=== PATIENT | female | born 1955 | race Two or more races ===

== ENCOUNTER → 2023-03-19 | Outpatient (CLI) | payer OTHER ==
[2023-03-19 11:02] LABS: Basophils # (auto) 0 10 ^3/uL (0-0.2); Eosinophils # (auto) 0.1 10 ^3/uL (0-0.8); Monocytes # (auto) 0.4 10 ^3/uL (0-1.3); Neutrophils # (auto) 3.6 10 ^3/uL (1.6-8.6); Nucleated Red Blood Cells % 0.1 %
[2023-03-19 11:04] LABS: Basophils % (auto) 0.3 % (0.0-2.0); Eosinophils % (auto) 1.8 % (0.0-7.0); Hematocrit 38.8 % (36.0-46.0); Hemoglobin 12.7 g/dL (12.2-16.2); Lymphocytes % (auto) 33.1 % (10.0-50.0); Mean Corpuscular Hemoglobin 27.1 pg (28.0-32.0); Mean Corpuscular Hgb Conc. 32.6 g/dL (32.0-36.0); Mean Corpuscular Volume 83.1 fL (80.0-100.0); Neutrophils % (auto) 57.8 % (37.0-80.0); Red Blood Cells 4.67 10^6/uL (4.0-5.20); Red Cell Distribution Width 15.1 % (11.8-14.3); White Blood Cell 6.2 10^3/uL (4.4-10.8)
[2023-03-19 11:25] LABS: Alanine Aminotransferase 19 U/L (7-40); Albumin 4.6 g/dL (3.2-4.8); Alkaline Phosphatase 88 U/L (46-116); Anion Gap 8 (5-15); Aspartate Aminotransferase 19 U/L (13-40); BUN/Creatinine Ratio 27.9 (10.0-20.0); Blood Urea Nitrogen 19 mg/dL (9-23); Carbon Dioxide 30 mmol/L (20-30); Chloride 103 mmol/L (98-107); Cholesterol 133 mg/dL (< 200); Glucose 103 mg/dL (74-106); HDL Cholesterol 41 mg/dL (40-59); LDL Cholesterol 69 mg/dL (< 100); Sodium 141 mmol/L (136-145); Triglycerides 140 mg/dL (< 150)
[2023-03-19 11:26] LABS: Bilirubin, Total 0.7 mg/dL (0.2-1.0); Total Protein 7.4 g/dL (5.7-8.2)
== END | disposition home or self-care (01) ==
LOC: LAB 10:17
PROVIDERS: ATTEND Student in an Organized Health Care Education/Training Program
DX: Z00.00 Encounter for general adult medical examination without abnormal findings (principal); N17.0 Acute kidney failure with tubular necrosis; I10 Essential (primary) hypertension; E78.5 Hyperlipidemia, unspecified
CPT/HCPCS: 36415; 80053; 80061; 82274; 85025

== ENCOUNTER → 2023-05-22 | Outpatient (CLI) | payer OTHER | END | disposition home or self-care (01) | LOC: LAB 13:22 | PROVIDERS: ATTEND Family Medicine | DX: B07.9 Viral wart, unspecified (principal) ==

== ENCOUNTER → 2024-01-05 | Outpatient (CLI) | payer OTHER ==
[2024-01-05 11:23] LABS: Basophils # (auto) 0 10 ^3/uL (0-0.2); Basophils % (auto) 0.3 % (0.0-2.0); Eosinophils # (auto) 0.1 10 ^3/uL (0-0.8); Eosinophils % (auto) 1.3 % (0.0-7.0); Hematocrit 40.2 % (36.0-46.0); Hemoglobin 13.4 g/dL (12.2-16.2); Lymphocytes % (auto) 35.4 % (10.0-50.0); Mean Corpuscular Hemoglobin 27.6 pg (28.0-32.0); Mean Corpuscular Hgb Conc. 33.3 g/dL (32.0-36.0); Mean Corpuscular Volume 82.9 fL (80.0-100.0); Monocytes # (auto) 0.4 10 ^3/uL (0-1.3); Monocytes % (auto) 7.8 % (0.0-12.0); Neutrophils # (auto) 3.1 10 ^3/uL (1.6-8.6); Neutrophils % (auto) 55.2 % (37.0-80.0); Nucleated Red Blood Cells % 0.1 %; Platelet Count (auto) 185 10^3/uL (140-450); Red Blood Cells 4.84 10^6/uL (4.0-5.20); Red Cell Distribution Width 14.2 % (11.8-14.3); White Blood Cell 5.5 10^3/uL (4.4-10.8)
[2024-01-05 11:31] LABS: Urine Bacteria FEW /hpf (None Seen); Urine Blood Negative /uL (Negative); Urine Clarity Turbid (Clear); Urine Color Yellow (Yellow); Urine Hyaline Cast FEW /lpf (0 - 2); Urine Mucus FEW (None Seen); Urine Protein, UAD TRACE (Negative); Urine Specific Gravity 1.023 (1.001-1.035); Urine Urobilinogen Normal (Negative); Urine WBC 3 /hpf (0 - 5)
[2024-01-05 11:36] LABS: INR 1.04 (0.9-1.15); Partial Thromboplastin Time 26.7 SEC (24.5-34.5)
[2024-01-05 11:48] LABS: Amphetamine Screen, Urine Neg (NEGATIVE); Benzodiazephine Screen, Urine Neg (NEGATIVE)
[2024-01-05 11:49] LABS: Alanine Aminotransferase 19 U/L (7-40); Alkaline Phosphatase 89 U/L (46-116); Barbiturate Scree,Urine Neg (NEGATIVE); Calcium 10.1 mg/dL (8.7-10.4); Carbon Dioxide 30 mmol/L (20-31); Chloride 104 mmol/L (98-107); Cocaine Screen, Urine Neg (NEGATIVE); Glucose 95 mg/dL (74-106); Opiate Scree,Urine Neg (NEGATIVE); Phencyclidine Screen, Urine Neg (NEGATIVE)
[2024-01-05 11:50] LABS: Albumin 4.4 g/dL (3.2-4.8); Anion Gap 6 (5-15); Aspartate Aminotransferase 15 U/L (13-40); BUN/Creatinine Ratio 21.5 (10.0-20.0); Blood Urea Nitrogen 14 mg/dL (9-23); Cannabinoid Screen, Urine Pos (NEGATIVE); Sodium 140 mmol/L (136-145); Total Protein 7.2 g/dL (5.7-8.2)
== END | disposition home or self-care (01) ==
LOC: LAB 10:57
PROVIDERS: ATTEND Nurse Practitioner
DX: Z01.812 Encounter for preprocedural laboratory examination (principal)
CPT/HCPCS: 36415; 80053; 80307; 81001; 83036; 85025; 85610; 85730

== ENCOUNTER 2024-08-22 09:10 | Outpatient (CLI) | payer OTHER ==
[2024-08-22 10:07] LABS: Basophils # (auto) 0 10 ^3/uL (0-0.2); Basophils % (auto) 0.4 % (0.0-2.0); Eosinophils # (auto) 0.1 10 ^3/uL (0-0.8); Hematocrit 39.2 % (36.0-46.0); Hemoglobin 12.9 g/dL (12.2-16.2); Lymphocytes # (auto) 2.2 10 ^3/uL (0.4-5.4); Lymphocytes % (auto) 42.5 % (10.0-50.0); Mean Corpuscular Hemoglobin 26.7 pg (28.0-32.0); Mean Corpuscular Hgb Conc. 32.9 g/dL (32.0-36.0); Monocytes # (auto) 0.4 10 ^3/uL (0-1.3); Neutrophils # (auto) 2.5 10 ^3/uL (1.6-8.6); Neutrophils % (auto) 48.1 % (37.0-80.0); Nucleated Red Blood Cells % 0.1 %; Platelet Count (auto) 223 10^3/uL (140-450); Red Blood Cells 4.84 10^6/uL (4.0-5.20); Red Cell Distribution Width 15.5 % (11.8-14.3); White Blood Cell 5.3 10^3/uL (4.4-10.8)
[2024-08-22 10:09] LABS: Basophils # (auto) 0 10 ^3/uL (0-0.2); Basophils % (auto) 0.4 % (0.0-2.0); Eosinophils # (auto) 0.1 10 ^3/uL (0-0.8); Hemoglobin 12.9 g/dL (12.2-16.2); Lymphocytes # (auto) 2.1 10 ^3/uL (0.4-5.4); Red Cell Distribution Width 15.3 % (11.8-14.3)
[2024-08-22 10:12] LABS: Hematocrit 38.8 % (36.0-46.0); Lymphocytes % (auto) 42.2 % (10.0-50.0); Mean Corpuscular Hemoglobin 26.8 pg (28.0-32.0); Mean Corpuscular Hgb Conc. 33.3 g/dL (32.0-36.0); Mean Corpuscular Volume 80.6 fL (80.0-100.0); Monocytes # (auto) 0.3 10 ^3/uL (0-1.3); Monocytes % (auto) 6.9 % (0.0-12.0); Neutrophils # (auto) 2.4 10 ^3/uL (1.6-8.6); Neutrophils % (auto) 48.5 % (37.0-80.0); Nucleated Red Blood Cells % 0.1 %; Platelet Count (auto) 216 10^3/uL (140-450); Red Blood Cells 4.82 10^6/uL (4.0-5.20)
[2024-08-22 10:17] LABS: Urine Bacteria FEW /hpf (None Seen); Urine Blood Negative /uL (Negative); Urine Budding Yeast OCCASIONAL /hpf (None Seen); Urine Clarity Turbid (Clear); Urine Color Light-Yellow (Yellow); Urine Mucus FEW (None Seen); Urine Protein, UAD Negative (Negative); Urine Specific Gravity 1.023 (1.001-1.035); Urine Squamous Epithelial Cell MOD /hpf (<5); Urine Urobilinogen Normal (Negative); Urine WBC 3 /HPF (0-5); Urine pH 5.5 (5.0-9.0)
[2024-08-22 10:19] LABS: Urine Bacteria FEW /hpf (None Seen); Urine Blood Negative /uL (Negative); Urine Clarity Turbid (Clear); Urine Color Light-Yellow (Yellow); Urine Mucus FEW (None Seen); Urine Protein, UAD Negative (Negative); Urine Specific Gravity 1.023 (1.001-1.035); Urine Squamous Epithelial Cell MOD /hpf (<5); Urine Urobilinogen Normal (Negative); Urine WBC 1 /HPF (0-5); Urine pH 5.5 (5.0-9.0)
[2024-08-22 10:21] LABS: INR 0.98 (0.9-1.15); Partial Thromboplastin Time 26.3 SEC (24.5-34.5); Prothrombin Time 10.4 sec (9.3-11.8)
[2024-08-22 10:35] LABS: Amphetamine Screen, Urine Neg (NEGATIVE)
[2024-08-22 10:38] LABS: Barbiturate Scree,Urine Neg (NEGATIVE); Benzodiazephine Screen, Urine Neg (NEGATIVE); Cannabinoid Screen, Urine Neg (NEGATIVE); Cocaine Screen, Urine Neg (NEGATIVE); Opiate Scree,Urine Neg (NEGATIVE); Phencyclidine Screen, Urine Neg (NEGATIVE)
[2024-08-22 10:39] LABS: Alanine Aminotransferase 13 U/L (7-40); Albumin 4.4 g/dL (3.2-4.8); Alkaline Phosphatase 86 U/L (46-116); Anion Gap 10 (5-15); Aspartate Aminotransferase 17 U/L (<34); BUN/Creatinine Ratio 27.8 (10.0-20.0); Bilirubin, Total 0.4 mg/dL (0.2-1.0); Blood Urea Nitrogen 20 mg/dL (9-23); Calcium 9.8 mg/dL (8.7-10.4); Carbon Dioxide 28 mmol/L (20-31); Chloride 105 mmol/L (98-107); Glucose 92 mg/dL (74-106); Potassium 3.7 mmol/L (3.5-5.1); Sodium 143 mmol/L (136-145); Total Protein 7.1 g/dL (5.7-8.2)
[2024-08-22 10:41] LABS: Alanine Aminotransferase 13 U/L (7-40); Albumin 4.4 g/dL (3.2-4.8); Alkaline Phosphatase 86 U/L (46-116); Anion Gap 11 (5-15); BUN/Creatinine Ratio 28.2 (10.0-20.0); Blood Urea Nitrogen 20 mg/dL (9-23); Carbon Dioxide 28 mmol/L (20-31); Chloride 105 mmol/L (98-107); Glucose 92 mg/dL (74-106); LDL Cholesterol 76 mg/dL (< 100); Potassium 3.7 mmol/L (3.5-5.1); Sodium 144 mmol/L (136-145); Total Protein 7.1 g/dL (5.7-8.2); Triglycerides 124 mg/dL (< 150)
[2024-08-22 10:42] LABS: Aspartate Aminotransferase 17 U/L (<34); Bilirubin, Total 0.4 mg/dL (0.2-1.0); Cholesterol 144 mg/dL (< 200); HDL Cholesterol 53 mg/dL (40-59)
== END 2024-08-22 17:00 | disposition home or self-care (01) ==
LOC: LAB 09:10
PROVIDERS: ATTEND Nurse Practitioner
DX: Z01.812 Encounter for preprocedural laboratory examination (principal); I10 Essential (primary) hypertension; E78.5 Hyperlipidemia, unspecified; E66.01 Morbid (severe) obesity due to excess calories; M17.0 Bilateral primary osteoarthritis of knee; R79.1 Abnormal coagulation profile
CPT/HCPCS: 36415; 80053; 80061; 80307; 81001; 83036; 84443; 85025; 85610; 85730

== ENCOUNTER 2024-10-17 07:16 | Inpatient (IN) | payer OTHER ==
[2024-10-14 12:19] LABS: Hemoglobin 14.0 g/dL (12.2-16.2); Mean Corpuscular Volume 80.1 fL (80.0-100.0); Nucleated Red Blood Cells % 0.0 %
[2024-10-14 12:21] LABS: Urine Protein, UAD Negative (Negative)
[2024-10-14 12:23] LABS: Hematocrit 41.4 % (36.0-46.0); Mean Corpuscular Hemoglobin 27.2 pg (28.0-32.0)
[2024-10-14 12:32] LABS: Alanine Aminotransferase 21 U/L (7-40); Albumin 4.8 g/dL (3.2-4.8); Alkaline Phosphatase 92 U/L (46-116); Anion Gap 8 (5-15); BUN/Creatinine Ratio 16.0 (10.0-20.0); Bilirubin, Total 0.9 mg/dL (0.2-1.0); Blood Urea Nitrogen 12 mg/dL (9-23); Calcium 10.1 mg/dL (8.7-10.4); Carbon Dioxide 30 mmol/L (20-31); Chloride 104 mmol/L (98-107); Glucose 98 mg/dL (74-106); Sodium 142 mmol/L (136-145); Total Protein 7.4 g/dL (5.7-8.2)
[2024-10-14 12:33] LABS: Potassium 3.5 mmol/L (3.5-5.1)
[2024-10-14 12:34] LABS: INR 1.06 (0.9-1.15); Partial Thromboplastin Time 26.8 SEC (24.5-34.5); Prothrombin Time 11.2 sec (9.3-11.8)
[~2024-10-17] VITALS: Ht 149.9 cm; Wt 98.2 kg
[2024-10-17] VITALS (9 sets, daily range): BP systolic 87–106; BP diastolic 44–64; PULSE 80–111; RESP 12–18; TEMP 97.4; O2SAT 92–99
[~2024-10-17 07:16] MED LIST: BENA20TA12 PO; ESCI10TA PO; OXYB5TAB14 PO; SIMV20TA20 PO
[2024-10-17] MEDS ORDERED: fentaNYL CITRATE 100 MCG/2 ML VL ONE (09:47)
[2024-10-17] MEDS ORDERED: BUPIVACAINE/DEXTROSE MPF 0.75% 2 ML AMP IT ONE (09:48)
[2024-10-17] MEDS ORDERED: ONDANSETRON HCL 4 MG/2 ML VIAL ONE (09:48)
[2024-10-17] MEDS ORDERED: LIDOCAINE 1% INJ PF 5ML AMP ONE (09:48)
[2024-10-17] MEDS ORDERED: SODIUM CHLORIDE LOCK 10 ML ONE (09:48)
[2024-10-17] MEDS ORDERED: MIDAZOLAM HCL 2MG/2ML 2ml VIAL (1mg/ml) ONE ×3 (09:48→11:01)
[2024-10-17] MEDS ORDERED: PROPOFOL 10 MG/ML 20 ML IV ONE (09:48)
[2024-10-17] MEDS: ACETAMINOPHEN IV 1000 MG/100ML (10MG/ML) IV ONE (10:23)
[2024-10-17] MEDS: CELECOXIB 100 MG CAP PO ONE (10:46)
[2024-10-17] MEDS: PREGABALIN CAPSULE 75 MG CAP PO ONE (10:46)
[2024-10-17] MEDS: CEFEPIME 1GM/50ML 50 ML IV ONE (11:13)
[2024-10-17] MEDS: ceFAZolin 2 GM/D5W50ml 50 ML IV ONE (11:13)
[2024-10-17] MEDS ORDERED: HYDROmorphone HCL 2 MG/ML VL/or syr IV PRN ×3 (11:45→13:30)
[2024-10-17] MEDS ORDERED: MORPHINE SULFATE INJ 2 MG/ml SYRG IV PRN ×2 (11:45→13:30)
[2024-10-17] MEDS ORDERED: ACETAMINOPHEN 325 MG TAB PO PRN (11:45)
[2024-10-17] MEDS ORDERED: ceFAZolin 1GM/50ML 50 ML IV SCH (11:45)
[2024-10-17] MEDS ORDERED: OXYCODONE W/ ACETAMINOPHEN 5/325MG TABLET PO PRN (11:45)
[2024-10-17] MEDS ORDERED: NITROGLYCERIN 0.4 MG SL TAB SL PRN (11:45)
[2024-10-17] MEDS: TRANEXAMIC ACID 20 ML ONE (11:57)
[2024-10-17] MEDS: KETOROLAC TROMETH 30 MG/ML 1ML VIAL ONE (11:57)
[2024-10-17] MEDS: MORPHINE SULF PF 5 MG/10 ML VIAL ONE (11:57)
[2024-10-17] MEDS: BUPIVACAINE 0.25% INJ 50ML VIAL ONE (11:57)
[2024-10-17] MEDS: VANCOMYCIN HCL 1000 MG VL ONE (11:57)
[2024-10-17] MEDS: TRANEXAMIC ACID 10 ML ONE (12:45)
[2024-10-17] MEDS: KETOROLAC TROMETH 30 MG/ML 1ML VIAL IV ONE (13:30)
[2024-10-17] MEDS ORDERED: diphenhdrAMINE HCL 50 MG/1 ML VL IV PRN (13:30)
[2024-10-17] MEDS ORDERED: NALOXONE HCL 0.4 MG/ML VIAL IV PRN (13:30)
[2024-10-17] MEDS ORDERED: MORPHINE SULFATE 4 MG/ML SYR/VIAL IV PRN (13:30)
--- NOTE | 2024-10-17 13:34 | DVHOP2 ---
Operative Report - 2 Report Details Date: 10/17/24 Preop Diagnosis: Left Hip Osteoarthritis Postop Diagnosis: Same Surgeon: Ariel Burgos MD Car Pre Cooler: Geovanna Anesthesiologist: Prosper Anesthesia: General Consent: The patient was informed of the risks and benefits of the procedure. These include but are not limited to complications of anesthesia, postoperative infection, incomplete relief of symptoms, recurrence of symptoms, damage to blood vessels, nerves and tendons, deep venous thrombosis, pulmonary embolism and possible need for repeat surgery in the future. Estimated Blood Loss: 250 Name of Procedure Performed Left Total Hip Arthroplasty Procedure Details Procedure Details: Preoperative medical and anesthesia clearance was obtained. The patient was seen in the preoperative area, and the operative site was marked and verified by myself, the orthopedic team, and the patient. All questions were addressed, documentation was reviewed, and the patient was transported to the operating room in stable condition. Upon arrival in the operating room, anesthesia was administered. The patient received prophylactic antibiotics and tranexamic acid. A surgical time-out was performed, confirming the correct operative site. The patient was positioned in the lateral decubitus position with appropriate padding to the axilla, lower extremities, and pelvis. The nonoperative leg was fitted with a compression stocking and sequential compression device. The operative site was prepped and draped in the standard sterile fashion. The surgical team utilized body exhaust suits. A posterior incision was made just posterior to the greater trochanter. Dissection was carried through the subcutaneous tissue using electrocautery. The fascia of the gluteus perfecto was split in line with its fibers, and a portion of the distal iliotibial band was incised. A Charnley self-retaining retractor was placed, with care taken to protect the sciatic nerve. The hip was internally rotated, and the short external rotators were detached from the greater trochanter. Capsulotomy was performed, and the hip was dislocated posteriorly. Randall retractors were used to protect the soft tissues, and femoral neck osteotomy was performed according to preoperative templating. The femoral head was removed and measured. Attention was then directed to the acetabulum. Acetabular retractors were placed for exposure. The labrum and pulvinar were excised. Sequential reaming was performed to 53mm size. A trial acetabular component was inserted and found to have satisfactory fit. The definitive 54mm acetabular component was implanted at approximately 45 degrees of abduction and 20 degrees of anteversion, with fixation supplemented with 2 screws. The liner was inserted, confirmed to be fully seated, and tested for stability. Retractors were removed, and attention was turned to the femur. A femoral elevator was used for exposure. The piriformis was excised. A Charnley awl, box osteotome, and lateralizing reamer were used to access the proximal femur. Sequential reaming and broaching were performed, and the appropriate trial broach was selected, which matched the contralateral side as a size 9. The calcar was planed. Multiple trial reductions were performed to assess range of motion, stability, and leg length. The definitive femoral component was implanted, and the femoral trunnion was cleaned and dried. The femoral head was impacted, and the hip was reduced. A dilute betadine soak and pulsatile lavage were performed. Local anesthetic cocktail was injected into the soft tissues. The capsule and short external rotators were reapproximated with #5 FiberWire. Irrigation was repeated, and the fascia was closed with #1 absorbable suture. Subcutaneous tissue was closed with 2-0 absorbable suture, and the skin was closed with surgical brandi. A sterile dressing was applied, and drapes were removed. An abduction pillow was placed, and the patient was transferred to a hospital bed and taken to the recovery room in stable condition. Instrument and sponge counts were correct. I was present for the entire procedure. Condition Good Disposition 2 Home with Health Services ARIEL BURGOS DO Oct 17, 2024 13:34
[2024-10-17] MEDS: PREGABALIN CAPSULE 75 MG CAP ONE (14:06)
[2024-10-17] MEDS: CELECOXIB 100 MG CAP ONE (14:06)
[2024-10-17] MEDS: TETRACAINE 1% INJ 2 ML VIAL IJ ONE (14:07)
[2024-10-17] MEDS: ACETAMINOPHEN IV 100 ML IV ONE (14:07)
[2024-10-17] MEDS: ONDANSETRON HCL 4 MG/2 ML VIAL IV PRN (14:27)
[2024-10-17] MEDS: METOCLOPRAMIDE HCL 5MG/ml INJ 2ml VIAL IV ONE (15:19)
--- NOTE | 2024-10-17 15:22 | DVH ---
EXAM: XY PELVIS AP CLINICAL INDICATION: postop TECHNIQUE: XY PELVIS AP Comparison: None FINDINGS/IMPRESSION: There is no evidence of acute fracture or dislocation. Moderate bilateral hip osteoarthritis. The alignment is anatomical. There is no radiopaque foreign body.
[2024-10-17] MEDS: KETOROLAC TROMETH 30 MG/ML 1ML VIAL IV SCH (18:00)
[2024-10-17] MEDS: ceFAZolin 1GM/50ML 50 ML IV SCH (18:35)
[2024-10-17] MEDS: LACTATED RINGER'S 1,000 ML IV SCH (19:04)
[2024-10-17] MEDS: DOCUSATE SOD 100 MG CAP PO SCH (21:59)
[2024-10-17] MEDS: ENOXAPARIN SOD 30 MG/0.3 ML SYRINGE SC SCH (22:00)
[2024-10-18] VITALS (17 sets, daily range): BP systolic 88–111; BP diastolic 47–68; PULSE 70–96; RESP 14–18; TEMP 97.6–99.9; O2SAT 85–98
[2024-10-18 06:30] LABS: Hematocrit 27.2 % (36.0-46.0); Hemoglobin 9.4 g/dL (12.2-16.2); Mean Corpuscular Hemoglobin 27.8 pg (28.0-32.0); Mean Corpuscular Volume 80.5 fL (80.0-100.0); Nucleated Red Blood Cells % 0.0 %
[2024-10-18 06:35] LABS: Chloride 101 mmol/L (98-107); Sodium 140 mmol/L (136-145)
[2024-10-18 06:36] LABS: Anion Gap 8 (5-15); Carbon Dioxide 31 mmol/L (20-31)
[2024-10-18 06:38] LABS: Calcium 8.4 mg/dL (8.7-10.4); Potassium 3.5 mmol/L (3.5-5.1)
[2024-10-18 06:42] LABS: BUN/Creatinine Ratio 16.9 (10.0-20.0); Blood Urea Nitrogen 11 mg/dL (9-23)
[2024-10-18 06:43] LABS: Glucose 123 mg/dL (74-106)
--- NOTE | 2024-10-18 08:01 | DVHPN2 ---
Progress Note Date Seen: Oct 18, 2024 Medical Necessity Reason Pt with a Central, PICC or Fol: No Subjective Patient reports: No new complaints Objective vital signs Vital Sign Date Time Temp Pulse Resp B/P (MAP) Pulse Ox O2 Delivery O2 Flow Rate FiO2 10/18/24 07:00 73 18 97 10/18/24 05:00 98.4 95/55 (68) 98.4 10/17/24 19:00 Nasal Cannula* 2 28 Total Intake and Output 10/17/24 10/17/24 10/18/24 15:00 23:00 07:00 Intake Total 230 ml 200 ml Balance 230 ml 200 ml medications Current Medications Medications Dose Ordered Sig/Demetris Route Start Time Stop Time Status Last Admin Dose Admin Acetaminophen 650 mg Q6HP PRN PO 10/17/24 11:45 Oxycodone/ Acetaminophen 1 tab Q4HP PRN PO 10/17/24 11:45 Hydromorphone HCl 1 mg Q2HP PRN IV 10/17/24 11:45 Ondansetron HCl 4 mg Q6HP PRN IV 10/17/24 11:45 10/17/24 14:27 4 MG Docusate Sodium 100 mg Q12HR PO 10/17/24 22:00 10/17/24 21:59 100 MG Enoxaparin Sodium 30 mg Q12HR SC 10/17/24 22:00 10/17/24 22:00 30 MG Ketorolac Tromethamine 15 mg Q6HR IV 10/17/24 12:00 10/22/24 11:59 Nitroglycerin 0.4 mg Q5MINP PRN SL 10/17/24 11:45 Morphine Sulfate 2 mg Q30M PRN IV 10/17/24 11:45 Diphenhydramine HCl 25 mg Q4HP PRN IV 10/17/24 13:30 Examination: GENERAL:Normal, MSK:Abnormal laboratory and microbiology Laboratory Tests 10/18/24 05:45 Test 10/18/24 05:45 Range/Units Serum Glucose 123 H 74-106 mg/dL Problem List/Assessment/Plan Problem List/Assessment/Plan 69 year old female who is s/p Left REESE POD 1 1. Pain control 2. WBAT 3. Abduction pillow at night when sleeping 4. physical therapy with posterior hip protocol 5. follow up in 2 weeks as scheduled at [facility] ortho clinic 6. prescriptions for percocet, keflex and aspirin sent electronically by [facility] ortho clinic WILLEM Brown 7. clear for discharge from orthopedic standpoint Plan discussed with: Patient My Orders My Orders Orders - NIKKI MARCIAL NP Procedure Category Date Status Time Admit ADMIT 10/17/24 Transmitted 11:41 Patient Condition COMORDER 10/17/24 Transmitted Stable 11:41 Regular Diet DIET 10/17/24 Transmitted Lunch Vital Signs IRWIN 10/17/24 In Process 11:41 Weight-Bearing IRWIN 10/17/24 In Process Restrictions 11:41 Acetaminophen Tablet PHA 10/17/24 In Process (Tylenol Tablet) 11:45 Oxycodone W/ Acet PHA 10/17/24 In Process 5/325mg Tab (Percocet 11:45 Hydromorphone PHA 10/17/24 In Process Injection (Dilaudid 11:45 Ondansetron Hcl PHA 10/17/24 In Process (Zofran) 11:45 Docusate Sodium PHA 10/17/24 In Process Capsule (Colace 22:00 Enoxaparin Sodium PHA 10/17/24 In Process (Lovenox) 22:00 Pt Request For Service PT 10/17/24 Logged 11:41 Call/Page IRWIN 10/17/24 In Process Hospitalist/Atten Fo 11:41 Sequential IRWIN 10/17/24 In Process Compression Device 11:41 Pelvis Ap XY 10/17/24 Resulted 13:00 Incentive Spirometry ORDERS 10/17/24 Transmitted 11:41 Ketorolac Injection PHA 10/17/24 In Process (Toradol Injection) 12:00 Nitroglycerin PHA 10/17/24 In Process Sublingual (Ntrostat 11:45 Morphine Sulfate PHA 10/17/24 In Process Injection 11:45 Stat Ekg For Chest IRWIN 10/17/24 In Process Pain 11:41 Notify Of Changes IRWIN 10/17/24 In Process From Base 11:41 Daycare Teacher For IRWIN 10/17/24 In Process 24 Hours 11:41 Emergency Dysrhythmia IRWIN 10/17/24 In Process Protocol 11:41 Rhythm Strips Once IRWIN 10/17/24 In Process Every Shift 11:41 Oxygen By Nasal RT 10/17/24 Transmitted Cannula 11:41 * Hospitalist Consult CONS 10/17/24 Transmitted Date of Service: Oct 18, 2024 Billing Provider: MARGUERITE ZABALA MD Common Visit Codes: NOT BILLABLE NIKKI MARCIAL NP Oct 18, 2024 08:01
[2024-10-18] MEDS ORDERED: HYDROmorphone HCL 2 MG/ML VL/or syr IV PRN (11:45)
--- NOTE | 2024-10-18 11:49 | DVHINCON2 ---
Date Seen: Oct 18, [address] Burgos Family History: Patient reports no known family medical history. Allergies: Coded Allergies: NO KNOWN ALLERGIES (Unverified , 10/14/24) Home Meds Reported Medications Escitalopram Oxalate (Lexapro) 10 Mg Tab, 10 MG PO DAILY, TAB 10/14/24 Oxybutynin Chloride (Oxybutynin Chloride) 5 Mg Tab, 5 MG PO DAILY, TAB 10/14/24 Simvastatin (Simvastatin) 20 Mg Tab, 20 MG PO QPM, TAB 10/14/24 Benazepril & Hydrochlorothiazi (Benazepril Hcl/Hydrochlor) 1 Tab Tab, 1 TAB PO, TAB 10/14/24 Current Medications Current Medications Medications (Trade) Dose Ordered Sig/Demetris Route PRN Reason Start Time Stop Time Status Last Admin Docusate Sodium (Colace Capsule) 100 mg Q12HR PO 10/17/24 22:00 10/18/24 09:05 Enoxaparin Sodium (Lovenox) 30 mg Q12HR SC 10/17/24 22:00 10/18/24 09:05 Ketorolac Tromethamine (Toradol Injection) 15 mg Q6HR IV 10/17/24 12:00 10/22/24 11:59 Hydromorphone HCl (Dilaudid Injection) 0.5 mg Q10M PRN IV SEVERE PAIN (7-10 PAIN SCALE) 10/17/24 13:30 10/17/24 14:11 DC Morphine Sulfate 2 mg Q4H PRN IV BREAKTHRU PAIN SCALE 7-10 10/17/24 13:30 10/17/24 17:31 DC Hydromorphone HCl (Dilaudid Injection) 0.25 mg Q10M PRN IV MODERATE PAIN (4-6 PAIN SCALE) 10/17/24 13:30 10/17/24 14:01 DC Morphine Sulfate 1 mg Q30M PRN IV SEVERE PAIN (7-10 PAIN SCALE) 10/17/24 13:30 10/17/24 15:31 DC Diphenhydramine HCl (Benadryl Injection) 25 mg Q4HP PRN IV FOR ITCHING 10/17/24 13:30 Naloxone HCl (Narcan) 0.2 mg Q5M PRN IV For respirations < than 10/min 10/17/24 13:30 10/17/24 13:59 DC Cefazolin Sodium 50 ml @ 50 mls/hr Q6H IV 10/17/24 17:15 10/18/24 06:14 DC 10/18/24 04:41 Ephedrine Sulfate (ePHEDrine SULFATE) 10 mg Q10M PRN IV SBP LESS THAN 90 10/17/24 18:00 10/17/24 18:41 DC Vital Signs Vital Signs Date Time Temp Pulse Resp B/P (MAP) Pulse Ox O2 Delivery O2 Flow Rate FiO2 10/18/24 10:00 87 18 86 10/18/24 09:00 98.1 89/52 (64) 98.1 10/18/24 08:00 Room Air* 0 21 Labs/Diagnostic Data Labs Test 10/18/24 05:45 10/14/24 11:55 Range/Units White Blood Count 6.4 # 4.4-10.8 10^3/uL Red Blood Count 3.38 L 4.0-5.20 10^6/uL Hemoglobin 9.4 #L 12.2-16.2 g/dL Hematocrit 27.2 #L 36.0-46.0 % Mean Corpuscular Volume 80.5 80.0-100.0 fL Mean Corpuscular Hemoglobin 27.8 L 28.0-32.0 pg Mean Corpuscular Hemoglobin Concent 34.6 32.0-36.0 g/dL Red Cell Distribution Width 14.7 H 11.8-14.3 % Platelet Count 162 140-450 10^3/uL Mean Platelet Volume 7.5 6.9-10.8 fL Neutrophils (%) (Auto) 67.1 37.0-80.0 % Lymphocytes (%) (Auto) 22.7 10.0-50.0 % Monocytes (%) (Auto) 10.0 0.0-12.0 % Eosinophils (%) (Auto) 0.1 0.0-7.0 % Basophils (%) (Auto) 0.1 0.0-2.0 % Neutrophils # (Auto) 4.3 1.6-8.6 10 ^3/uL Lymphocytes # (Auto) 1.5 0.4-5.4 10 ^3/uL Monocytes # (Auto) 0.6 0-1.3 10 ^3/uL Eosinophils # (Auto) 0 0-0.8 10 ^3/uL Basophils # (Auto) 0 0-0.2 10 ^3/uL Nucleated Red Blood Cells 0.0 % Sodium Level 140 136-145 mmol/L Potassium Level 3.5 3.5-5.1 mmol/L Chloride Level 101 98-107 mmol/L Carbon Dioxide Level 31 20-31 mmol/L Anion Gap 8 5-15 Blood Urea Nitrogen 11 9-23 mg/dL Creatinine 0.65 0.550-1.02 mg/dL Glomerular Filtration Rate Calc 95 >90 mL/min BUN/Creatinine Ratio 16.9 10.0-20.0 Serum Glucose 123 H 74-106 mg/dL Calcium Level 8.4 L 8.7-10.4 mg/dL Prothrombin Time 11.2 9.3-11.8 sec Prothrombin Time INR 1.06 0.9-1.15 Activated Partial Thromboplast Time 26.8 24.5-34.5 SEC Urine Color Light-yellow Yellow Urine Clarity Turbid H Clear Urine pH 6.5 5.0-9.0 Urine Specific [place] 1.019 1.001-1.035 Urine Protein Negative Negative Urine Ketones Negative Negative Urine Blood Negative Negative /uL Urine Nitrite Negative Negative Urine Bilirubin Negative Negative Urine Urobilinogen Normal Negative mg/dL Urine Leukocyte Esterase Negative Negative /uL Urine RBC 1 0 - 4 /hpf Urine Microscopic WBC 1 0-5 /HPF Urine Squamous Epithelial Cells Few <5 /hpf Urine Bacteria None seen None Seen /hpf Urine Glucose Normal Normal mg/dL Total Bilirubin 0.9 0.2-1.0 mg/dL Aspartate Amino Transferase (AST) 25 13-40 U/L Alanine Aminotransferase (ALT) 21 7-40 U/L Alkaline Phosphatase 92 46-116 U/L Total Protein 7.4 5.7-8.2 g/dL Albumin 4.8 3.2-4.8 g/dL Assessment see dictated note Plan discussed with: Patient Date of Service: Oct 18, 2024 Billing Provider: PRASAD SALINAS MD Common Visit Codes: [id number] INP/OBS CARE (HIGH) Secondary Visit Codes: [id number] CARE PLAN 30 MINUTES PRASAD SALINAS MD Oct 18, 2024 11:49
--- NOTE | 2024-10-18 12:01 | DVHINCON2 ---
DATE OF CONSULTATION: 10/18/2024 INTERNAL MEDICINE CONSULT HISTORY OF PRESENT ILLNESS: The patient is a 69-year-old lady who had surgery of the left hip for DJD of the hip. The patient denies any significant pain. No chest pain, no shortness of breath. No nausea or vomiting. REVIEW OF SYSTEMS: Review of rest of the systems is otherwise currently negative. PAST MEDICAL HISTORY: Significant for hypertension, hyperlipidemia, and depression. MEDICATIONS: She takes benazepril, hydrochlorothiazide, Lexapro, simvastatin. ALLERGIES: No known drug allergies. SOCIAL HISTORY: Denies smoking or alcohol. Lives alone. FAMILY HISTORY: Negative. PHYSICAL EXAMINATION: GENERAL: The patient is awake, alert. VITAL SIGNS: Temperature of 98.4, pulse 87 per minute, blood pressure 95/55. SHEENT: Unremarkable. NECK: There is no JVD. No pedal edema. LUNGS: Equal bilaterally. No added sounds. CARDIOVASCULAR: S1 and S2 is regular, no murmurs. ABDOMEN: Soft. There is no organomegaly. NEUROLOGIC: Nonfocal. MUSCULOSKELETAL: There is a dressing at the site of the left hip surgery. ASSESSMENT AND PLAN: * Hypertension for which the patient's blood pressure will be monitored. * Hyperlipidemia. * Depression. * Status post left hip surgery for DJD of the hip for which she will receive pain medication and physical therapy. ADVANCED CARE PLANNING: The patient desires full code-TIME SPENT: 18 minutes. Davy Rodriguez MD JLN/EKT TID: [id number] RECEIPT: [id number] [facility]
[2024-10-18] MEDS: SODIUM CHLORIDE 0.9% 1,000 ML IV SCH (12:16)
[2024-10-19 01:00] VITALS: BP 115/62; PULSE 79; RESP 14; TEMP 99; O2SAT 96
[2024-10-19 05:00] VITALS: BP 118/66; PULSE 77; RESP 14; TEMP 98.2; O2SAT 91
[2024-10-19 06:46] LABS: Hematocrit 26.8 % (36.0-46.0); Hemoglobin 9.0 g/dL (12.2-16.2); Mean Corpuscular Hemoglobin 27.1 pg (28.0-32.0); Mean Corpuscular Volume 80.3 fL (80.0-100.0); Nucleated Red Blood Cells % 0.0 %
[2024-10-19 07:12] LABS: Alanine Aminotransferase 12 U/L (7-40); Albumin 3.3 g/dL (3.2-4.8); Alkaline Phosphatase 60 U/L (46-116); Anion Gap 6 (5-15); BUN/Creatinine Ratio 15.9 (10.0-20.0); Bilirubin, Total 0.6 mg/dL (0.2-1.0); Blood Urea Nitrogen 10 mg/dL (9-23); Glucose 104 mg/dL (74-106)
[2024-10-19 07:20] LABS: Calcium 8.3 mg/dL (8.7-10.4); Carbon Dioxide 32 mmol/L (20-31); Chloride 107 mmol/L (98-107); Potassium 3.4 mmol/L (3.5-5.1); Sodium 145 mmol/L (136-145); Total Protein 5.2 g/dL (5.7-8.2)
[2024-10-19 08:00] VITALS: PULSE 71; PULSE 77; RESP 18; O2SAT 95
[2024-10-19 09:00] VITALS: BP 121/68; PULSE 77; RESP 16; TEMP 98.3; O2SAT 95
--- NOTE | 2024-10-19 11:33 | DVHDS2 ---
Discharge Summary Date of Admission Oct 17, 2024 at 11:41 Date of Discharge: Oct 19, 2024 Labs/Diagnostic Data: Laboratory Results Test 10/19/24 05:42 10/14/24 11:55 White Blood Count 6.5 10^3/uL (4.4-10.8) Red Blood Count 3.34 10^6/uL (4.0-5.20) Hemoglobin 9.0 g/dL (12.2-16.2) Hematocrit 26.8 % (36.0-46.0) Mean Corpuscular Volume 80.3 fL (80.0-100.0) Mean Corpuscular Hemoglobin 27.1 pg (28.0-32.0) Mean Corpuscular Hemoglobin Concent 33.7 g/dL (32.0-36.0) Red Cell Distribution Width 15.0 % (11.8-14.3) Platelet Count 140 10^3/uL (140-450) Mean Platelet Volume 8.1 fL (6.9-10.8) Neutrophils (%) (Auto) 67.8 % (37.0-80.0) Lymphocytes (%) (Auto) 18.7 % (10.0-50.0) Monocytes (%) (Auto) 11.5 % (0.0-12.0) Eosinophils (%) (Auto) 1.7 % (0.0-7.0) Basophils (%) (Auto) 0.3 % (0.0-2.0) Neutrophils # (Auto) 4.4 10 ^3/uL (1.6-8.6) Lymphocytes # (Auto) 1.2 10 ^3/uL (0.4-5.4) Monocytes # (Auto) 0.8 10 ^3/uL (0-1.3) Eosinophils # (Auto) 0.1 10 ^3/uL (0-0.8) Basophils # (Auto) 0 10 ^3/uL (0-0.2) Nucleated Red Blood Cells 0.0 % Sodium Level 145 mmol/L (136-145) Potassium Level 3.4 mmol/L (3.5-5.1) Chloride Level 107 mmol/L (98-107) Carbon Dioxide Level 32 mmol/L (20-31) Anion Gap 6 (5-15) Blood Urea Nitrogen 10 mg/dL (9-23) Creatinine 0.63 mg/dL (0.550-1.02) Glomerular Filtration Rate Calc 96 mL/min (>90) BUN/Creatinine Ratio 15.9 (10.0-20.0) Serum Glucose 104 mg/dL (74-106) Calcium Level 8.3 mg/dL (8.7-10.4) Total Bilirubin 0.6 mg/dL (0.2-1.0) Aspartate Amino Transferase (AST) 29 U/L (13-40) Alanine Aminotransferase (ALT) 12 U/L (7-40) Alkaline Phosphatase 60 U/L (46-116) Total Protein 5.2 g/dL (5.7-8.2) Albumin 3.3 g/dL (3.2-4.8) Prothrombin Time 11.2 sec (9.3-11.8) Prothrombin Time INR 1.06 (0.9-1.15) Activated Partial Thromboplast Time 26.8 SEC (24.5-34.5) Urine Color Light-yellow (Yellow) Urine Clarity Turbid (Clear) Urine pH 6.5 (5.0-9.0) Urine Specific [place] 1.019 (1.001-1.035) Urine Protein Negative (Negative) Urine Ketones Negative (Negative) Urine Blood Negative /uL (Negative) Urine Nitrite Negative (Negative) Urine Bilirubin Negative (Negative) Urine Urobilinogen Normal mg/dL (Negative) Urine Leukocyte Esterase Negative /uL (Negative) Urine RBC 1 /hpf (0 - 4) Urine Microscopic WBC 1 /HPF (0-5) Urine Squamous Epithelial Cells Few /hpf (<5) Urine Bacteria None seen /hpf (None Seen) Urine Glucose Normal mg/dL (Normal) Other Laboratory Tests 10/19/24 05:42 Brief Hx & Hospital Course: see dictated note Condition at Discharge: Good Final Diagnosis/Problems List hip surgery Discharge Disposition: Home Discharge Instruct/Medications Diet: Cardiac 2g Na,low cholest Activity: No Restrictions, As Tolerated Follow Up/Referral: fu with pcp/ortho Medications: resume home meds rest per ortho Scheduled Escitalopram Oxalate (Lexapro), 10 MG PO DAILY, (Reported) Oxybutynin Chloride (Oxybutynin Chloride), 5 MG PO DAILY, (Reported) Simvastatin (Simvastatin), 20 MG PO QPM, (Reported) Miscellaneous Medications Benazepril & Hydrochlorothiazi (Benazepril Hcl/Hydrochlor), 1 TAB PO, (Reported) Discharge Statement: "Patient was advised to return to the ER or call 911 if any headaches, dizziness, shortness of breath, chest pain, abdominal pain, bleeding, fevers, or worsening of medical condition. Patient was counseled about treatment plan, medications, possible side effects, patientverbalized understanding. All questions were answered to the best of my ability. This discharge took greater then 30 minutes in planning, reviewing documentation, counseling the patient, and discussing with other team members." ASSESSMENT ASSESSMENT Assessment hip surgery Date of Service: Oct 19, 2024 Billing Provider: PRASAD SALINAS MD Common Visit Codes: [id number] DISCH DAY >30min PRASAD SALINAS MD Oct 19, 2024 11:33
--- NOTE | 2024-10-19 11:44 | DVHDS ---
DATE OF DISCHARGE: 10/19/2024 HISTORY OF PRESENT ILLNESS: The patient is a 69-year-old lady who was admitted after she underwent surgery on the left hip for DJD of the hip. The patient has history of hypertension, hyperlipidemia, and depression. HOSPITAL COURSE: The patient did well postoperatively. Hemoglobin at the time of discharge is 9. The patient will now be discharged home to resume her home medications and follow up with her primary and Orthopedics. She will have home physical therapy. FINAL DIAGNOSES: * Hypertension. * Hyperlipidemia. * Depression. * Morbid obesity. * Status post left hip surgery for DJD of the hip. Time spent in discharge planning and review of plan with the patient, Test Lead and nursing was 39 minutes. MD DEE aSnchez/JANICE TID: [id number] RECEIPT: [id number]
[2024-10-19] MEDS: POTASSIUM CHL 20 Meq TABLET PO ONE (12:14)
[2024-10-19 12:15] VITALS: TEMP 36.8
[2024-10-19 13:00] VITALS: BP 98/60; PULSE 85; RESP 18; TEMP 98; O2SAT 94
== END 2024-10-19 16:40 | disposition home or self-care (01) | DRG 470 ==
LOC: SUR 07:16 → OVERFLOW 11:41 → TELE-EAST 19:02
PROVIDERS: ADMIT Internal Medicine; ATTEND Internal Medicine
PROC: 0SRB02A Replacement of Left Hip Joint with Metal on Polyethylene Synthetic Substitute, Uncemented, Open Approach (ICD-10-PCS; principal; 2024-10-17 11:13)
DX: M16.12 Unilateral primary osteoarthritis, left hip (principal); F32.A Depression, unspecified; I10 Essential (primary) hypertension; E66.01 Morbid (severe) obesity due to excess calories; Z68.39 Body mass index [BMI] 39.0-39.9, adult; E78.5 Hyperlipidemia, unspecified; Z79.899 Other long term (current) drug therapy
CPT/HCPCS: 36415; 72170; 80048; 80053; 81001; 85025; 85610; 85730; 86850; 86900; 86901; 97110; 97116; 97163; G0378; J0131; J1885; J2250; J2405; J2704; J3490